=== PATIENT | male | born 1960 | race African-American/Black ===

== ENCOUNTER 2018-03-04 12:14 | Inpatient (IN) ==
[2018-03-04] MEDS ORDERED: *HR* Heparin 5,000 UNIT/ML VIAL IVP ONE (12:55)
[2018-03-04] MEDS ORDERED: *HR* Heparin 5,000 UNIT/ML VIAL IVP PRN ×2 (12:55)
--- NOTE | 2018-03-04 13:29 | Emergency Department Note ---
Disposition Clinical Impression: DVT (deep venous thrombosis) Qualifiers: DVT location: lower extremity Affected thrombotic vein of extremity: iliac Chronicity: acute Laterality: left Qualified Code(s): I82.422 - Acute embolism and thrombosis of left iliac vein Disposition: Admitted As Inpatient Condition: Good Referrals: Justina Ann CNP [Primary Care Provider] - Forms: ED Satisfaction Letter Time of Disposition: 13:30 General Adult HPI - General Chief complaint: ED Recheck/Abnormal Lab/Rx Stated complaint: Positive DVT Time Seen by Provider: 03/04/18 12:39 Source: patient Mode of arrival: ambulatory Limitations: no limitations Nursing Notes Reviewed: Yes - History of Present Illness HPI Narrative: 57 year old male prsentse to the ED with complaints of swelling in the LLE. Dony states that he had his PCP had him scheudled for a DVT US. He has a history of DVTs but they have all been below the knee and is currently on coumadin for the therapy. this is the first time he has had a DVT above the knee and it has been confimred by US done at [facility] for [place], which is present to us in paper form given by the patient. It essentially notifies us that the patient has a DVT spanning from the left distal illiac to the left lesser saphenous. Patine denies chest pain or shortness of breath. Pain Scale: 0 - Related Data Home Medications Medication Instructions Recorded Confirmed Allopurinol [Zyloprim 300 MG] 300 mg PO DAILY 03/04/18 03/04/18 Calcitriol [Rocaltrol] 0.25 mg PO DAILY 03/04/18 03/04/18 Metoprolol [Lopressor] 25 mg PO BID 03/04/18 03/04/18 [place]-3/Dha/Epa/Fish Oil [Fish Oil 1 cap PO DAILY 03/04/18 03/04/18 1,000 mg Softgel] Warfarin Sodium 5 mg PO SUTUWEFRSA 03/04/18 03/04/18 Warfarin Sodium 7.5 mg PO MOTH 03/04/18 03/04/18 Allergies Allergy/AdvReac Type Severity Reaction Status Date / Time No Known Allergies Allergy Verified 03/04/18 12:26 All systems ED: reviewed and negative except as stated. Review of Systems: As Per HPI Constitutional: Denies: fever, chills, weakness, weight change Eyes: Denies: eye pain, eye discharge, vision change ENT ED: Denies: ear pain, throat pain, dental pain, hearing loss, epistaxis, congestion, dysphagia Cardiovascular: Denies: chest pain, palpitations, dyspnea on exertion, edema, syncope Respiratory: Denies: cough, dyspnea, wheezes, hemoptysis, stridor Gastrointestinal: Denies: abdominal pain, nausea, vomiting, diarrhea, consti pation, hematemesis, melena, hematochezia Genitourinary: Denies: urgency, dysuria, frequency, hematuria Musculoskeletal: Reports: as per HPI (swelling). Denies: back pain, neck pain, arthralgia, myalgia Integumentary: Denies: rash, abrasion, lesions Neurological: Denies: headache, weakness, numbness, paresthesias, confusion, abnormal gait, vertigo Psychiatric: Denies: anxiety, depression, suicidal thoughts, homicidal thoughts, auditory hallucinations, visual hallucinations Endocrine: Denies: fatigue Hematological/Lymphatic: Denies: easy bleeding, easy bruising Allergic/Immunologic: Denies: facial swelling, urticaria Past Medical History - Past Medical History Medical history: Reports: arthritis, atrial fibrillation, DVT, renal disease - Social History Smoking Status: Never smoker Smokeless Tobacco Status: No Alcohol use: Reports: none Drug use: Reports: none Physical Exam - General Limitations: no limitations General appearance: alert - Head Head exam: atraumatic, normocephalic, normal inspection - Eye Eye exam: Present: normal appearance, PERRL, EOMI - Expanded Eye Exam Pupils: Bilateral: reactive - ENT ENT exam: normal exam, normal oropharynx, mucous membranes moist - Expanded ENT Exam External ear exam: Present: normal external inspection Mouth exam: Present: normal external inspection Teeth exam: Present: normal inspection Throat exam: Present: normal inspection - Neck Neck exam: Present: normal inspection, full ROM, trachea midline - Chest Chest inspection: Present: normal inspection, symmetric chest wall rise - Respiratory Respiratory exam: Present: normal lung sounds bilaterally - Cardiovascular Cardiovascular exam: Present: regular rate, normal rhythm, normal heart sounds - Abdominal Exam Abdominal exam: Present: soft, Non-Tender. Absent: tenderness, distention, guarding, rebound, rigidity - Extremities Exam Extremities exam: Present: normal inspection, full ROM. Absent: tenderness, pedal edema - Expanded Upper Extremity Exam Shoulder exam: Present: normal inspection, full ROM Arm exam: Present: normal inspection, full ROM Elbow exam: Present: normal inspection, full ROM Forearm/Wrist exam: Present: normal inspection, full ROM Hand exam: Present: normal inspection, full ROM Vascular exam: Normal: capillary refill, radial pulse - Expanded Lower Extremity Exam Hip/Pelvis exam: Present: normal inspection, full ROM Upper leg exam: Present: normal inspection, full ROM Knee exam: Present: normal inspection, full ROM Lower leg exam: Present: normal inspection, full ROM, swelling (LEft). Absent: Homans' sign Ankle exam: Present: normal inspection, full ROM Foot/toe exam: Present: normal inspection, full ROM Neurovascular/Tendon exam: Absent: motor deficit, sensory deficit, tendon deficit - Back Exam Back exam: Present: normal inspection, full ROM. Absent: tenderness - Neurological Exam Neurological exam: Present: alert, oriented X3 - Expanded Neurological Exam Patient oriented to: Present: person, place, time Coma Scale Eye Opening: Spontaneous Coma Scale Motor Response: Obeys Commands Coma Scale Verbal Response: Oriented Coma Scale Total: 15 - Psychiatric Psychiatric exam: Present: normal affect, normal mood - Skin Skin exam: Present: warm, dry, intact, normal color Course Course Narrative: we will get basline labs including coags and then start heparin thearpy and adm it to medicine. - Consultations Consultation #1: discussed case with Dr. Archibald and he accepts pascual tot his service. Kathy is agreeabkel to plan Time: 14:08 Vital Signs Temperature 97.5 F L 03/04/18 12:25 Pulse Rate 57 03/04/18 12:25 Respiratory Rate 16 03/04/18 12:25 Blood Pressure 167/98 03/04/18 12:25 O2 Sat by Pulse Oximetry 100 03/04/18 12:25 Temperature 97.5 F L 03/04/18 12:42 Pulse Rate 56 03/04/18 12:49 Respiratory Rate 17 03/04/18 12:49 Blood Pressure 143/97 03/04/18 12:49 O2 Sat by Pulse Oximetry 99 03/04/18 12:49 Oxygen Delivery Oxygen Delivery Room Air Medical Decision Making - Lab Data Result diagrams: 03/04/18 12:52 03/04/18 12:52 Lab Results 03/04/18 03/04/18 03/04/18 Range/Units 12:52 12:52 12:52 WBC 4.8 (4.3-11.1) K/mcL RBC 5.56 H (4.19-5.50) M/mcL Hgb 10.1 L (12.9-16.9) g/dL Hct 34.8 L (37.5-50.1) % MCV 62.6 L (83.0-100.0) fL MCH 18.2 L (28.0-33.3) pg MCHC 29.0 L (31.6-35.5) g/dL RDW 16.7 H (11.5-14.5) % Plt Count 136 L (140-400) K/mcL MPV TNP Immature Plt Fraction 2.3 (1.1-6.1) % PT 23.7 H (9.4-12.1) Seconds INR 2.1 APTT 42.7 H (26.0-36.0) Seconds Heparin Anti-Xa, Unfract 0.00 L (0.30-0.70) IU/mL Sodium 137 (136-145) mEq/L Potassium 4.2 (3.5-5.1) mEq/L Chloride 108 H (98-107) mEq/L Carbon Dioxide 23 (23-29) mEq/L BUN 43 H (6-20) mg/dL Creatinine 2.29 H (0.70-1.30) mg/dL Est GFR ( Amer) 36 L (> 60) Est GFR (Non-Af Amer) 30 L (> 60) BUN/Creatinine Ratio 19 (6-26) Glucose 144 H (70-105) mg/dL Calculated Osmolality 297 (280-300) Calcium 8.8 (8.6-10.3) mg/dL Total Bilirubin 1.0 (0.3-1.0) mg/dL AST 20 (13-39) Units/L ALT 15 (7-52) Units/L Alkaline Phosphatase 68 (34-104) Units/L Serum Total Protein 7.1 (6.4-8.9) g/dL Albumin 4.0 (3.5-5.7) g/dL Globulin 3.1 (2.4-3.5) g/dL Albumin/Globulin Ratio 1.3 (1.1-2.2)
[2018-03-04 13:38] LABS: INR 2.1; Prothrombin Time 23.7 Seconds (9.4-12.1)
[2018-03-04 13:39] LABS: Hematocrit 34.8 % (37.5-50.1); Hemoglobin 10.1 g/dL (12.9-16.9); Immature Platelets 2.3 % (1.1-6.1); Mean Corpuscular Hemoglobin 18.2 pg (28.0-33.3); Mean Corpuscular Volume 62.6 fL (83.0-100.0); Platelet Count 136 K/mcL (140-400); Red Blood Count 5.56 M/mcL (4.19-5.50); Red Cell Distribution Width 16.7 % (11.5-14.5)
[2018-03-04 13:41] LABS: Activated Partial Thrombo Time 42.7 Seconds (26.0-36.0)
[2018-03-04 13:54] LABS: Albumin/Globulin Ratio 1.3 (1.1-2.2); Calcium 8.8 mg/dL (8.6-10.3); Globulin 3.1 g/dL (2.4-3.5); Potassium 4.2 mEq/L (3.5-5.1); Total Protein 7.1 g/dL (6.4-8.9)
[2018-03-04] MEDS: Heparin 25,000 UNIT/500 ML D5W 25,000 UNIT/500 ML BAG IVC SCH (14:04)
[2018-03-04] MEDS ORDERED: Naloxone 0.4 MG/ML INJ IVP PRN (15:51)
--- NOTE | 2018-03-04 20:29 | Internal Med History&Physical ---
Date of Encounter: 03/04/18 Time of Encounter: 19:00 Internal Medicine - H&P: HPI Chief complaint: Pain/swelling of left leg Admitted From: Home Plans for Post Hospital Care: Home History of present illness: The patient is a 57-year-old -[place]. He has had a long-standing history of recurrent DVTstarted when he was a high school student. He tells us, that clots were located below his knees all the time. However, he has been on warfarin for more than 10 years. He has had progressing pain/swelling in left leg for the last a few days. His PCP advised him to do the venous duplex of her left lower extremity. It was done in an urgent care facility. According to the paper he brought with him to the emergency room he has developed quite extensive DVT in his left legabove and below his left knee. One can see that he said pro time INR checked in our ED is 2.1. PAST MEDICAL HX: Recurrent DVT of lower extremities; see above. He takes Lopressor, as he has had history of significant cardiac arrhythmia (it was likely atrial fibrillation). He has been taking allopurinol as he had gout attacks. He has not had any gout attacks since he started using that medication. He has had CKD stage III; he was CKD stage IV a couple years ago. He denies having diabetes. He does have borderline hypertension. Nobody told him about the cause of his chronic kidney disease. PAST FAMILY HX: Positive for HTN. PAST SOCIAL HX: See below.. REVIEW OF SYSTEMS: All 14 organ systems were reviewed by me with the patient. Positive and pertinent negative findings are listed above. The rest of organ systems is ne gative. PHYSICAL EXAM: Skin: Free of rash and discoloration. Eyes: Sclera is white. There is no discharge from eyes. ENMT: Oral/pharyngeal mucosa is normal in appearance. There is no discharge from nose or ears. Respiratory: Normal breath sounds with no crackles and wheezes bilaterally. CV: Heart is regular with no gallop or murmur. There is moderate swelling of left lower extremity. It is associated with mild tenderness to palpation. I could not appreciate any masses there. GI: Abdomen is flat and soft with no palpable mass or visceromegaly. : There is no tenderness in patient's flanks bilaterally. Neuro exam: He has good strength in upper and lower extremities. He has normal eye movements. Psychiatric: He has normal affect. His thought process is appropriate to the situation. ADDITIONAL DATA: He has a copy of the venous duplex results of left leg. The study was done today. It showed extensive DVT above and below the left knee. CBC shows hemoglobin of 10.1 with WBC of 4.8 thousand and platelet count of 136,000. Pro time INR is 2.1. BMP shows normal electrolytes. He shows creatinine of 2.29 with GFR of 36. Random glucose is 144 with calcium of 8.8. Hepatic panel is normal. A/P: DVT of left leg. Failure to treatment with warfarin despite therapeutic pro time INR. We will keep him on IV heparin. We will consult hematology/oncology. History of cardiac arrhythmia. Likely atrial fibrillation. To continue anticoagulation. Currently, he is normal sinus rhythm. History of recurrent gout attack. Subsided after giving him a treatment with allopurinol. To continue that medication. Chronic kidney disease, stage III. Cause unknown. 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 Past Med Surg Social Fam HX - Past Medical History Medical history: arthritis, atrial fibrillation, DVT, renal disease - Social History Smoking Status: Never smoker Smokeless Tobacco Status: No Alcohol use: none Drug use: none - Family History Mother History Unknown: Yes Internal Medicine - H&P: Meds Allopurinol [Zyloprim 300 MG] 300 mg PO DAILY 03/04/18 [History] Calcitriol [Rocaltrol] 0.25 mg PO DAILY 03/04/18 [History] Metoprolol [Lopressor] 25 mg PO BID 03/04/18 [History] [place]-3/Dha/Epa/Fish Oil [Fish Oil 1,000 mg Softgel] 1 cap PO DAILY 03/04/18 [History] Warfarin Sodium 5 mg PO SUTUWEFRSA 03/04/18 [History] Warfarin Sodium 7.5 mg PO MOTH 03/04/18 [History] Allergy/AdvReac Type Severity Reaction Status Date / Time No Known Allergies Allergy Verified 03/04/18 12:26 - Constitutional Vitals: Temp Pulse Resp BP Pulse Ox 97.9 F 87 16 151/53 99 03/04/18 16:26 03/04/18 16:26 03/04/18 16:26 03/04/18 16:26 03/04/18 16:26 General appearance: Present: A&O X 3, no acute distress, answers questions appropriately Exam: xx Internal Med - H&P Results - Labs CBC & Chem 7: 03/04/18 12:52 03/04/18 12:52 Labs: Short CBC 03/04/18 Range/Units 12:52 WBC 4.8 (4.3-11.1) K/mcL Hgb 10.1 L (12.9-16.9) g/dL Hct 34.8 L (37.5-50.1) % Plt Count 136 L (140-400) K/mcL BMP 03/04/18 12:52 Sodium 137 Potassium 4.2 Chloride 108 H Carbon Dioxide 23 BUN 43 H Creatinine 2.29 H Glucose 144 H Calcium 8.8 Liver Function 03/04/18 Range/Units 12:52 Total Bilirubin 1.0 (0.3-1.0) mg/dL AST 20 (13-39) Units/L ALT 15 (7-52) Units/L Alkaline Phosphatase 68 (34-104) Units/L Albumin 4.0 (3.5-5.7) g/dL - Assessment and plan (1) DVT of lower limb, acute Current Visit: Yes Status: Acute Qualifiers: Affected thrombotic vein of extremity: femoral Laterality: left Qualified Code(s): I82.412 - Acute embolism and thrombosis of left femoral vein (2) Arrhythmia Current Visit: Yes Status: Chronic Qualifiers: Arrhythmia type: unspecified cardiac arrhythmia Qualified Code(s): I49.9 - Cardiac arrhythmia, unspecified (3) Hx of gout Current Visit: Yes Status: Chronic (4) CKD (chronic kidney disease), stage III Current Visit: Yes Status: Chronic - Time Spent With Patient Total time spent is greater than 50% in coordination of care (as documented) at patient's floor/unit and/or counseling patient: 25 - 35 minutes - VTE Deep Vein Thrombosis/Pulmonary Embolism Present on Admission: Yes
[2018-03-05] MEDS: Heparin 25,000 UNIT/500 ML D5W 25,000 UNIT/500 ML BAG IVC SCH ×2 (08:28→23:31)
--- NOTE | 2018-03-05 10:54 | Oncology Inp Consult Note ---
Addendum entered and electronically signed by Dorota Hong MD 03/05/18 16:18: Discussed with patient, continuing coumadin outpatient with INR-2.5-3 or eliquis for outpatient therapy. He will need to closely follow up on labs as outpatient. Defer hypercoag w/u as it does not chart changer. I examined this patient and my medical decision-making was reviewed with resident physician Iraida Mendez. I agree with the documented findings, disposition and treatment plan as described except to the extent set forth below. Original Note: <Andrea Khoury - Last Filed: 03/05/18 10:47> Date of Encounter: 03/05/18 Time of Encounter: 10:47 Assessment and Plan (1) DVT (deep venous thrombosis) Status: Chronic Assessment and plan: 57-year-old male with seeing his kidney DrFlynn as outpatient, who noticed mild swelling in the left lower extremity and ordered ultrasound showing extensive DVT in the left lower extremity. He was sent to the hospital for further workup. He states that he started getting DVT's as a teenager and has had a total of 3 DVT's during his lifetime, all of which were unprovoked. 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 He has been on warfarin for about 10 years and is compliant with his medication and has his INR monitored regularly. Plan: will either change anticoagulation, or remain on Coumadin while maitaining INR 2.5-3 (depending on what his insurance will pay for) Likely limited options with novel anticoagulants due to his CKD III. Qualifiers: DVT location: lower extremity Affected thrombotic vein of extremity: iliac Chronicity: acute Laterality: left Qualified Code(s): I82.422 - Acute embolism and thrombosis of left iliac vein (2) CKD (chronic kidney disease), stage III Status: Chronic - Data of Consult Patient: new to practice Consult date: 03/05/18 Requesting Physician: Jeffrey Amado Primary Care Provider: Justina Ann CNP - Consult Narrative Reason for consult: DVT despite therapy on Coumadin History of present illness: Mr. Garza is a 57-year-old male with past medical history of recurrent DVT starting as a teenager, on Coumadin therapy. He also has a past medical history of doubt, hyperlipidemia, ERA, chronic atrial fibrillation, CAD, hypertension, CKD III. patient states that he was seeing his kidney DrFlynn as an outpatient, who noticed that his left ankle appeared more swollen than the right. He states casey t his kidney doctor ordered an ultrasound showing extensive DVT in the left lower extremity. Patient was admitted for further workup. Today, patient denies nausea, vomiting, diarrhea, fever, chills, chest pain, shortness of breath. He states that he has had a total of 3 DVT's during his lifetime. Each occurrence has been unprovoked. He denies any history of DVT in his relatives. And he denies any history of prior work up with plant anatomy teacher. Past Med Surg Social Fam HX - Past Medical History Medical history: arthritis, atrial fibrillation, DVT, renal disease - Social History Smoking Status: Never smoker Smokeless Tobacco Status: No Alcohol use: none Drug use: none - Family History Mother History Unknown: Yes Medications and Allergies [place]-3/Dha/Epa/Fish Oil [Fish Oil 1,000 mg Softgel] 1 cap PO DAILY 03/04/18 [History] RX: Allopurinol [Zyloprim 300 MG] 300 mg PO DAILY 03/04/18 [History] RX: Metoprolol [Lopressor] 25 mg PO BID 03/04/18 [History] Warfarin Sodium 5 mg PO SUTUWEFRSA 03/04/18 [History] Warfarin Sodium 7.5 mg PO MOTH 03/04/18 [History] RX: Calcitriol [Rocaltrol] 0.25 mcg PO DAILY 03/05/18 [History] Allergy/AdvReac Type Severity Reaction Status Date / Time No Known Allergies Allergy Verified 03/04/18 12:26 All systems: reviewed and no additional remarkable complaints except as stated Oncology - Exam - Constitutional General appearance: average body habitus Exam: Gen.: alert and oriented x3, pleasant, no acute distress. Vital signs stable. Average body habitus. CV: regular rate, irregular rhythm. No murmurs, rubs, gallops. Normal S1, S2. No pitting edema present. Respiratory: clear to auscultation bilaterally, no wheezes, rales, rhonci. Abdomen: soft, nondistended, nontender, bowel sounds present. Extremities: no pitting edema present. Mild discoloration of the skin with bruising. Left ankle appears slightly more swollen than the right. No warmth or tenderness appreciated and bilateral lower extremities. Consult Discharge Plan - Plan Referrals: Justina Ann CNP [Primary Care Provider] - <Dorota Hong - Last Filed: 03/05/18 12:50> Date of Encounter: 03/05/18 - Data of Consult Requesting Physician: Jeffrey Amado Primary Care Provider: Justina Ann CNP - Attending Attestation I examined this patient and my medical decision-making was reviewed with the resident physician, Iraida Mendez. I agree with the documented findings, disposition and treatment plan as described except to the extent set forth below. Discussed patient's history prior to consultation with hospital kaz g. Inpatient Charges Provider: Dr. Naeem Hong Consult - Inpatient: [id number]
[2018-03-05] MEDS ORDERED: NON-FORMULARY MEDICATION 1 EACH EACH (Omega-3/Dha/Epa/Fish Oil [Fish Oil 1,000 Mg Softgel] PO SCH (12:30)
[2018-03-05 15:48] LABS: INR 2.3; Prothrombin Time 25.9 Seconds (9.4-12.1)
[2018-03-05] MEDS ORDERED: *HR* Warfarin 7.5 MG TABLET PO ONE (18:00)
[2018-03-05] MEDS ORDERED: Warfarin perPT PO PRN (18:00)
--- NOTE | 2018-03-05 21:22 | Internal Med Progress Note ---
Hospitalist Progress Note - Encounter Date of Encounter: 03/05/18 Time of Encounter: 19:00 - Subjective Interval History: SUBJECTIVE: The patient feels good. He has only minimal pain in his left lower extremity. He continues to have moderate swelling of that limb. He has no problems with ambulation at all. Denies chest pain. He denies dyspnea, coughing and wheezing. OBJECTIVE: Skin: Free of rash and discoloration. ENMT: Oral/pharyngeal mucosa is normal in appearance. Eyes: Sclera is white. There is no discharge from eyes. Respiratory: Normal breath sounds; no crackles or wheezes. CV: Heart is regular; no gallop or murmur. He does have moderate swelling of left lower extremity. There is no tenderness with palpation of that leg. GI: Abdomen is soft and not tender. There is no palpable mass or visceromegaly. Neuro: There is no focal deficits. ADDITIONAL DATA: I am ordering CBC and BMP in the morning. He will have pro time every morning. ASSESSMENT AND PLAN: DVT of left lower extremity, acute. History of multiple DVT. We appreciate help from oncology/hematology. Due to his advanced kidney disease he is not a candidate for any of the novel anticoagulants. We will keep him on Coumadin with targeted pro time between 2.5 and 3.5. Will continue on IV heparin drip. History of cardiac arrhythmia. It was was likely atrial fibrillation. Currently, he seems to have normal sinus rhythm. History of gout. To continue allopurinol. He has not had any gout attacks since starting that medication. CKD stage III. All his medications have to be modified to be appropriate for that condition. - Exam Vitals: Temp Pulse Resp BP Pulse Ox 97.6 F 78 16 130/84 97 03/05/18 19:01 03/05/18 19:01 03/05/18 19:01 03/05/18 19:01 03/05/18 19:01 Exam: xx - Assessment and Plan (1) DVT of lower limb, acute Current Visit: Yes Status: Acute (2) Arrhythmia Current Visit: Yes Status: Chronic (3) Hx of gout Current Visit: Yes Status: Chronic (4) CKD (chronic kidney disease), stage III Current Visit: Yes Status: Chronic - Time Spent with Patient Total time spent is greater than 50% in coordination of care (as documented) at patient's floor/unit and/or counseling patient: 25 - 35 minutes Plan of Care Discussed with: patient Internal Medicine: Result - Labs CBC & Chem 7: 03/04/18 12:52 03/04/18 12:52 - ABG Interpretation ABG results: PT/INR, D-dimer PT 25.9 Seconds (9.4-12.1) H 03/05/18 15:06 - VTE Deep Vein Thrombosis/Pulmonary Embolism Present on Admission: Yes Consult Discharge Plan - Plan Referrals: Justina Ann, [facility] [Primary Care Provider] - (1) DVT of lower limb, acute Qualifiers: Affected thrombotic vein of extremity: femoral Laterality: left Qualified Code(s): I82.412 - Acute embolism and thrombosis of left femoral vein (2) Arrhythmia Qualifiers: Arrhythmia type: unspecified cardiac arrhythmia Qualified Code(s): I49.9 - Cardiac arrhythmia, unspecified
[2018-03-06 04:27] LABS: Hemoglobin 8.8 g/dL (12.9-16.9); Red Cell Distribution Width 16.6 % (11.5-14.5)
[2018-03-06 04:30] LABS: Hematocrit 29.2 % (37.5-50.1); Immature Platelets 1.6 % (1.1-6.1); Mean Corpuscular HGB Conc 30.1 g/dL (31.6-35.5); Mean Corpuscular Hemoglobin 18.5 pg (28.0-33.3); Mean Corpuscular Volume 61.5 fL (83.0-100.0); Monocytes # 0.5 K/mcL (0.0-1.3); Platelet Count 128 K/mcL (140-400); Red Blood Count 4.75 M/mcL (4.19-5.50)
[2018-03-06] MEDS: Heparin 25,000 UNIT/500 ML D5W 25,000 UNIT/500 ML BAG IVC SCH (04:30)
[2018-03-06 04:36] LABS: INR 2.4; Prothrombin Time 26.5 Seconds (9.4-12.1)
[2018-03-06 04:51] LABS: Calcium 8.6 mg/dL (8.6-10.3); Potassium 4.4 mEq/L (3.5-5.1)
[2018-03-06 05:10] LABS: Eosinophils # 0.3 K/mcL (0.0-0.6); Lymphocytes # 1.7 K/mcL (0.6-4.6); Neutrophils # 1.7 K/mcL (1.6-8.9); Platelet Estimate Decreased (Normal); Target Cells 1+ (Not Present)
[2018-03-06 05:11] LABS: Hypochromasia Present (Not Present)
[2018-03-06 10:58] VITALS: BP 107/67
[2018-03-06] MEDS ORDERED: *HR* Enoxaparin 120 MG/0.8 ML SYRINGE SQ ONE (14:00)
--- NOTE | 2018-03-06 16:50 | Discharge Summary ---
Orders not resulted at time of discharge: Pending orders 03/07/18 04:00 PT/INR [Prothrombin Time INR] [[facility]] AM 0400 03/08/18 04:00 PT/INR [Prothrombin Time INR] [[facility]] AM 0400 Date of Encounter: 03/06/18 Time of Encounter: 16:43 - Discharge Diagnosis (1) DVT of lower limb, acute Priority: Primary Status: Acute Qualifiers: Affected thrombotic vein of extremity: femoral Laterality: left Qualified Code(s): I82.412 - Acute embolism and thrombosis of left femoral vein (2) Arrhythmia Priority: Secondary Status: Chronic Qualifiers: Arrhythmia type: unspecified cardiac arrhythmia Qualified Code(s): I49.9 - Cardiac arrhythmia, unspecified (3) Hx of gout Priority: Secondary Status: Chronic (4) CKD (chronic kidney disease), stage III Priority: Secondary Status: Chronic Hospital course: Mr. Garza is a 57 year old male Discharge discussed with: patient, nurse, case management - Time Spent with Patient Total time spent providing and/or coordinating discharge services: Greater than 30 minutes (40 minutes) - Discharge Medications Prescriptions: Warfarin [Coumadin] 7.5 mg PO 1800 30 Days #30 tablet Home Medications: Allopurinol [Zyloprim 300 MG] 300 mg PO DAILY 03/04/18 [History] Metoprolol [Lopressor] 25 mg PO BID 03/04/18 [History] [place]-3/Dha/Epa/Fish Oil [Fish Oil 1,000 mg Softgel] 1 cap PO DAILY 03/04/18 [ History] Calcitriol [Rocaltrol] 0.25 mcg PO DAILY 03/05/18 [History] Warfarin [Coumadin] 7.5 mg PO 1800 30 Days #30 tablet 03/06/18 [Rx] Allergies/Adverse Reactions: Allergy/AdvReac Type Severity Reaction Status Date / Time No Known Allergies Allergy Verified 03/04/18 12:26 Date of admission: 03/04/18 16:59 Primary care physician: Justina Ann CNP Consults: 03/04/18 19:36 Consult to Oncology Hematology [CONS] Routine Consulting Provider: [facility] Reason for Consult: RECURRENT DVT; PRO TIME OF 2.1.. Time Notified: 19:20 Call Completed: Yes Discharging clinician: Jeffrey Amado Anticipated date of discharge: 03/06/18 - Constitutional Vitals: Temp Pulse Resp BP Pulse Ox 97.5 F L 71 17 107/67 99 03/06/18 10:56 03/06/18 10:56 03/06/18 10:56 03/06/18 10:56 03/06/18 10:56 General appearance: Present: A&O X 3, no acute distress, answers questions appropriately Exam: xx - Patient Status Disposition: Home, Self-Care Condition: Fair Functional capacity at discharge: independent ambulation - Discharge Instructions Follow Up With: Justina Ann CNP [Primary Care Provider] - 03/13/18 3:30 pm (Please follow up as schedule...) Additional Instructions: PRO TIME: 03/07 AND 03/08; THEN, MONTHLY PLUS "IF NEEDED".. KEEP PRO TIME INR IN 2.5-3.5 RANGE.. - Diet and Activity Activity: increase activity as tolerated Diet: regular diet - VTE Deep Vein Thrombosis/Pulmonary Embolism Present on Admission: Yes
[2018-03-06] MEDS ORDERED: *HR* Warfarin 5 MG TABLET PO ONE (18:00)
== END 2018-03-06 17:56 | disposition home or self-care (01) | DRG 301 ==
LOC: 2ANU 12:14 → EMEROOARM 12:14 → 2ANU 14:39 → SUATTDRO 16:59
PROVIDERS: ADMIT Student in an Organized Health Care Education/Training Program; ATTEND Internal Medicine